=== PATIENT | male | born 1955 | race Caucasian/White ===

== ENCOUNTER → 2023-11-06 16:40 | Outpatient (REF) | payer MEDICARE, OTHER, SELFPAY | LOC: MRI 3T 16:40 | PROVIDERS: ATTENDING PHYSICIAN Urology; FAMILY PHYSICIAN Family Medicine | DX: N28.89 Other specified disorders of kidney and ureter (principal) | CPT/HCPCS: 74183; A9575 ==

== ENCOUNTER → 2023-12-09 14:19 | Outpatient (REF) | payer MEDICARE, OTHER, SELFPAY | LOC: RAD 14:19 | PROVIDERS: ATTENDING PHYSICIAN Family Medicine | DX: D86.0 Sarcoidosis of lung (principal) | CPT/HCPCS: 71046 ==

== ENCOUNTER → 2023-12-12 13:28 | Outpatient (REF) | payer MEDICARE, OTHER, SELFPAY ==
[2023-12-12 14:08] LABS: % Basophils 1.1 % (0-2); % Eosinophils 2.6 % (0-6); % Immature Granulocytes 0.4 % (0-0.5); % Lymphocytes 19.2 % (20.5-51.1); % Monocytes 7.1 % (1.7-9.3); % Neutrophils 69.6 % (42.2-75.2); Absolute Basophils 0.1 10^3/uL (0-0.2); Absolute Eosinophils 0.2 10^3/uL (0-0.7); Absolute Lymphocytes 1.8 10^3/uL (1.2-3.4); Absolute Monocytes 0.7 10^3/uL (0.1-0.6); Absolute Neutrophils 6.5 10^3/uL (1.4-6.5); Hematocrit 41.2 % (39.0-52.0); Hemoglobin 13.8 g/dL (13.0-18.0); Mean Corp Hgb Conc. 33.5 g/dL (33.0-37.0); Mean Corpuscular Hgb 28.8 pg (27.0-31.0); Mean Platelet Volume 9.8 fL (7.4-10.4); Nucleated Red Blood Cells % 0 % (-); Platelet Count 253 10^3/uL (130-400); Red Blood Cell Count 4.79 10^6/uL (4.70-6.10); Red Cell Dist. Width 13.3 % (11.5-14.5); White Blood Cell Count 9.3 10^3/uL (4.8-10.8)
[2023-12-12 14:26] LABS: Glycohemoglobin (HgbA1c) 5.9 % (4.0-5.6)
[2023-12-12 14:51] LABS: ALT (SGPT) 31 U/L (0-50); AST (SGOT) 30 U/L (17-59); Albumin 4.7 g/dl (3.5-5.0); Alkaline Phosphatase 106 U/L (38-126); Blood Urea Nitrogen 27 mg/dl (9-20); Calcium 9.8 mg/dl (8.4-10.2); Carbon Dioxide 27 mmol/L (22-30); Chloride 102 mmol/L (98-107); Glucose 99 mg/dl (70-99); HDL Cholesterol 47 mg/dl; LDL Cholesterol, Calculated 89 mg/dl; Potassium 4.5 mmol/L (3.5-5.1); Sodium 139 mmol/L (135-145); Total Bilirubin 0.7 mg/dl (0.2-1.3); Total Cholesterol 176 mg/dl (50-199); Total Protein 7.4 g/dl (6.3-8.2); Triglyceride 203 mg/dl (10-149); Very Low Density Lipoprotein 40 mg/dl (0-30); eGFR > 60.00
[2023-12-12 15:22] LABS: TSH 1.86 uIU/ml (0.47-4.68)
== END ==
LOC: REG 13:28
PROVIDERS: ATTENDING PHYSICIAN Family Medicine
DX: D86.0 Sarcoidosis of lung (principal); N52.9 Male erectile dysfunction, unspecified; N18.2 Chronic kidney disease, stage 2 (mild); M85.80 Other specified disorders of bone density and structure, unspecified site; K21.9 Gastro-esophageal reflux disease without esophagitis; I10 Essential (primary) hypertension; R73.01 Impaired fasting glucose
CPT/HCPCS: 36415; 80053; 80061; 82306; 83036; 84443; 85025

== ENCOUNTER 2024-03-26 06:21 | Day surgery (SDC) | payer MEDICARE, OTHER, SELFPAY ==
[2024-03-26] MEDS: CYSVIEW KIT 100 MG INTRAVES (11:40)
[2024-03-26] MEDS: NORMOSOL-R/PLASMALYTE-A 1000 IV (11:41)
[2024-03-26] MEDS: Pyridium 200 MG PO (15:17)
[2024-03-26] MEDS: ZOFRAN 4 MG IV (15:53)
[2024-03-26] MEDS: ROXICODONE 5 MG PO (15:54)
== END 2024-03-26 16:27 | disposition home or self-care (01) ==
LOC: SDS 06:21
PROVIDERS: ATTENDING PHYSICIAN Urology; FAMILY PHYSICIAN Family Medicine
DX: N30.80 Other cystitis without hematuria (principal); D49.4 Neoplasm of unspecified behavior of bladder
CPT/HCPCS: 52234; C9738; 88307

== ENCOUNTER 2024-04-24 16:41 | Inpatient (IN) | payer MEDICARE, OTHER, SELFPAY ==
[2024-04-24] VITALS (8 sets, daily range): BP systolic 103–155; BP diastolic 68–90; BMI 21.7; BMI 22.2
--- NOTE | 2024-04-24 11:58 | ED.GENMED ---
Addendum entered and electronically signed by Gregory Clark DO 04/24/24 15:41:
Update patient and spouse updated patient feels some belching but no vomiting, will keep n.p.o., hold on NG tube at this time but explained to the patient he may need one, his abdomen is distended but soft without guarding or rebound
Previously had some issues with constipation had been on Linzess
Original Note:
History of Present Illness
General
Chief Complaint: Abdominal Pain
Source: patient
Exam Limitations: none
Time Seen by Provider: 04/24/24 11:28
Nursing documentation reviewed up to this point in time: agreed with
History of Present Illness
History of Present Illness:
68-year-old male, presents with nausea vomiting decreased p.o. intake,
Started on Bactrim recently for urinary tract issue had a biopsy by urology has also had a partial nephrectomy has had a bowel resection due to accidental perforation during a bowel disimpaction at [facility]
Is not noted take his meds, vomited quite a bit of vomitus yesterday with some dark material mixed in has not had a normal bowel movement in some time
Past History
Past History
ED Past Medical History: Asthma, Cancer (Grade 1 renal cell carcinoma), GERD, HTN, Hypercholesterolemia, Valvular disease and Other (seasonal allergies)
ED Past Surgical History: Bowel resection (Rectal perforation with colon resection with colostomy with eventual Reversol.) and Urological
Social History
Tobacco: Non-smoker
Alcohol: None
Drug: None
Personal:
Living: with family
Employment: Employed
Family History
Family History: Other (Noncontributory)
Review of Systems
Review of Systems
All Other Systems: Not applicable
Constitutional: Reports fatigue; Denies fever
EENT: Reports no symptoms
Respiratory: Reports no symptoms
Cardiac: Denies chest pain
ABD/GI: Reports vomiting; Denies abdominal pain
: Reports no symptoms
Musculoskeletal: Reports no symptoms
Skin: Reports no symptoms
Neurological: Reports weakness
Phy Exam
Physical Exam
Physical Exam:
Physical Exam
General: 68-year-old male looks uncomfortable
Neck: Lips are dry
Heart: s1/s2 regular rate and rhythm, no murmur. equal radial pulses.
Lungs: no acute respiratory distress. clear bilaterally
Abdomen: Soft distended nontender
Neuro: alert and oriented. no focal neurological deficits
Skin: no rash
Psychiatric: well kept. interactive and cooperative
Extremities: no edema.
Course
Orders/Labs/Results
Orders:
Orders
04/24/24 11:29
Electrocardiogram (*1) Stat
Reason for Study: Abdominal Pain
Cardiac Monitoring- Treatment ONCE
EKG- Treatment ONCE
04/24/24 11:48
Complete Blood Count/With Diff Urgent
Comprehensive Metabolic Panel Urgent
Lipase Urgent
04/24/24 11:50
0.9% Sodium Chloride 1000 ml [Nss] 2,000 ml IV BOLUS
Ondansetron Injectable [Zofran] 4 mg IV NOW STA
Pantoprazole [Protonix IV] 40 mg IV NOW STA
04/24/24 11:51
CT Abd/pel (oral only)-DH Only Urgent
Comment:
Reason For Exam: vomiting
04/24/24 12:59
Iohexol [Omnipaque] See Protocol PO NOW STA
04/24/24 14:07
Urinalysis Reflex To Culture Urgent
Date Specimen was Collected: 04/24/24
Time Specimen was Collected: 11:54
Urine Microscopic Reflex Cult Urgent
Urine Culture Urgent
VALERI Source: U
Specimen Description:
Date Specimen was Collected: 04/24/24
Time Specimen was Collected: 11:54
Abnormal Lab Results
04/24/24 04/24/24
11:48 14:07
RBC 4.66 L 10^6/uL
(4.70-6.10)
Absolute Neuts (auto) 7.8 H 10^3/uL
(1.4-6.5)
Absolute Lymphs (auto) 1.0 L 10^3/uL
(1.2-3.4)
Absolute Monos (auto) 0.7 H 10^3/uL
(0.1-0.6)
Neutrophils % 82.1 H %
(42.2-75.2)
Lymphocytes % 10.2 L %
(20.5-51.1)
Chloride 93 L mmol/L
(98-107)
Carbon Dioxide 31 H mmol/L
(22-30)
BUN 34 H mg/dl
(9-20)
Creatinine 1.7 H mg/dL
(0.7-1.3)
Glucose 121 H mg/dl
(70-99)
Albumin 5.2 H g/dl
(3.5-5.0)
Urine Ketones 1+ A
(Negative)
Ur Occult Blood Reflex Trace A
(Negative)
Leukocyte Esterase Rfl Trace A
(Negative)
Urine RBC 7-10 A /HPF
(0-2)
Urine WBC (Reflex) 16-20 A /HPF
(0-5)
Urine Bacteria (Reflex) Few A
(Negative)
Urine Albumin (Reflex) 1+ A
(Neg - Trace)
04/24/24 11:48
04/24/24 11:48
Vital Signs
Initial and Last Documented VS:
Initial Vital Signs
Temp Pulse Resp BP Pulse Ox
98.7 F 64 18 155/90 98
04/24/24 10:45 04/24/24 10:45 04/24/24 10:45 04/24/24 10:45 04/24/24 10:45
Last Documented Vital Signs
Temp Pulse Resp BP Pulse Ox
98.7 F 57 16 137/88 97
04/24/24 10:45 04/24/24 12:30 04/24/24 12:30 04/24/24 12:08 04/24/24 12:30
MDM/Problems Addressed
Differential Diagnosis Includes:
Ileus obstruction UTI electrolyte abnormality upper GI bleed gastritis
MDM/Problems Addressed:
Vomiting
Chronic conditions affecting care: Previous abdomnial surgery and Cancer
Acute Exacerbation and/or Progression of Chronic Illness: Previous abdomnial surgery and Cancer
*Radiology
Radiology exam reviewed: radiology read reviewed
*Pulse Oximetry
Patient hypoxic: no
*EKG
Interpreted by ED Provider?: Yes
Interpretation: normal
Comparison EKG: no comparison EKG present
Heart Rate: 88
Rate: normal
Rhythm: sinus
Ischemia: no ischemia
*Import Coordinator Interpretation
Rate: normal
Interpretation: normal
Heart Rate: 77
Rhythm: sinus
*Critical Care Note
Total Time (30-74mins, 75-104mins- exclusive of procedures): Not Applicable
Update Note
Update Note:
Update, CT reviewed reviewed with radiology positive SBO in the left lower quadrant fits clinically has had bowel surgery previously will require admission message sent to hospitalist general surgery
ED Attending Note
-
Portions of this chart may have been created with voice recognition software.� Occasional wrong word or��sound alike� substitutions may have occurred due to the inherent limitations of voice recognition software.
Discharge Plan
Departure
Patient Disposition: Admit
Date of Disposition: 04/24/24
Time of Disposition: 15:32
Admit to: Med/Surg
Presentation/result/management discussed w/ accepting MD/DO: Hospitalist
Patient with high blood pressure during this ER visit?: No
Condition: Fair
Discharge Problem:
SBO (small bowel obstruction)
Prescriptions:
No Action
atorvastatin [Lipitor] 10 mg Tablet
10 mg PO DAILY
hydroxyzine HCl 10 mg Tablet
10 mg PO BID PRN (Reason: allergies)
magnesium 200 mg Tablet
400 mg PO BID
B12
1,000 mcg PO DAILY
chlorthalidone 25 mg Tablet
25 mg PO DAILY
famotidine 20 mg Tablet
20 mg PO QPM
tamsulosin [Flomax] 0.4 mg Capsule
0.4 mg PO QPM
albuterol sulfate 90 mcg/actuation Hfa Aerosol Inhaler
2 puff INHALATION Q6H PRN (Reason: asthma)
losartan [Cozaar] 100 mg Tablet
100 mg PO DAILY
tadalafil [Cialis] 5 mg Tablet
5 mg PO DAILY PRN (Reason: ED)
cholecalciferol (vitamin D3) [Vitamin D3] 50 mcg (2,000 unit) Capsule
50 mcg PO QPM
Budesonide Sinus Rinse
1 dose intranasal DAILY
vitamin Q60-dwctd acid
1 tab PO DAILY
Referrals:
Zulma Tabares DO [Family Provider] -
Interventions
Interventions:
*Risk Screen - Suicide Last Done: 04/24/24 10:45
*General Assessment Last Done: 04/24/24 10:45
*Neglect/Abuse Screening Last Done: 04/24/24 10:45
*ED COVID-19 Vaccine History Last Done: 04/24/24 11:58
CV-Upnfek-Xcngudrieo Assessment Last Done: 04/24/24 12:01
Discharge Date and Time
Print Language: ERITREAN
[2024-04-24 12:00] LABS: % Basophils 0.3 % (0-2); % Immature Granulocytes 0.3 % (0-0.5); % Lymphocytes 10.2 % (20.5-51.1); % Monocytes 7.1 % (1.7-9.3); % Neutrophils 82.1 % (42.2-75.2); Absolute Monocytes 0.7 10^3/uL (0.1-0.6); Absolute Neutrophils 7.8 10^3/uL (1.4-6.5); Hematocrit 40.4 % (39.0-52.0); Hemoglobin 13.9 g/dL (13.0-18.0); Mean Corp Hgb Conc. 34.4 g/dL (33.0-37.0); Mean Corpuscular Hgb 29.8 pg (27.0-31.0); Mean Corpuscular Volume 86.7 fL (80.0-94.0); Mean Platelet Volume 10.1 fL (7.4-10.4); Nucleated Red Blood Cells % 0 % (-); Platelet Count 251 10^3/uL (130-400); Red Blood Cell Count 4.66 10^6/uL (4.70-6.10); Red Cell Dist. Width 13.5 % (11.5-14.5); White Blood Cell Count 9.5 10^3/uL (4.8-10.8)
[2024-04-24] MEDS: NSS 2000 IV (12:03)
[2024-04-24 12:15] LABS: ALT (SGPT) 30 U/L (0-50); AST (SGOT) 26 U/L (17-59); Albumin 5.2 g/dl (3.5-5.0); Alkaline Phosphatase 87 U/L (38-126); Blood Urea Nitrogen 34 mg/dl (9-20); Calcium 10.1 mg/dl (8.4-10.2); Carbon Dioxide 31 mmol/L (22-30); Chloride 93 mmol/L (98-107); Estimated Creatinine Clearance 36 ml/min; Glucose 121 mg/dl (70-99); Potassium 4.1 mmol/L (3.5-5.1); Sodium 142 mmol/L (135-145); Total Protein 7.9 g/dl (6.3-8.2); eGFR 43.37
[2024-04-24 12:28] LABS: Lipase 82 U/L (23-300)
[2024-04-24] MEDS: ZOFRAN 4 MG IV (12:51)
[2024-04-24] MEDS: PROTONIX IV 40 MG IV (12:51)
[2024-04-24] MEDS: OMNIPAQUE 50 ML PO (13:04)
[2024-04-24 14:18] LABS: Urine Albumin 1+ (Neg - Trace); Urine Bilirubin Negative (Negative); Urine Character Clear (Clear); Urine Color Yellow; Urine Glucose Negative (Negative); Urine Ketone 1+ (Negative); Urine Leukocyte Trace (Negative); Urine Nitrite Negative (Negative); Urine Occult Blood Trace (Negative); Urine Urobilinogen Negative (Neg - 1+)
[2024-04-24 14:32] LABS: Urine Mucus Moderate
[2024-04-24 14:33] LABS: Urine Bacteria Few (Negative); Urine White Cell 16-20 /HPF (0-5)
--- NOTE | 2024-04-24 16:09 | HPS.HSE ---
Family Physician
-
Family Physician: Zulma Tabares
Chief Complaint
-
abd distention, n/v
History of Present Illness
68 y/o M, hx of bowel perforation s/p ostomy creation/reversal 2008, HTN, HLD, Asthma, GERD, BPH, hx of renal mass s/p nephrectomy presenting to ER for abd distention. Patient reports worsening abd distention over a few days, associated with
nausea/vomiting and reflux type symptoms. He reports no sky abdominal pain. no fever/chills. No other complaints.
in ER, found to have SBO on CT.
Also reports being on Bactrim for recent cystoscopy procedure for bladder wall lesions and concern for possible bladder malignancy but path showed cystitis.
Medical History
Past Medical History
Past Medical History: Reports Other (hx of bowel perforation s/p ostomy creation/reversal 2008, HTN, HLD, Asthma, GERD, BPH, hx of renal mass s/p nephrectomy)
Past Surgical History: Reports Other (Bowel resection (Rectal perforation with colon resection with colostomy with eventual Reversol.) and Urological)
Social History
Tobacco: Non-smoker
Alcohol: None
Drug: None
Personal:
Living: With Family
Employment: Employed
Family History
Family History: Not pertinent
Allergies / Home Medications
Allergies reflects when Allergies were last updated in [employer].
Home Medications with original date entered in [employer]
Allergy/Medication List:
Allergies
Allergy/AdvReac Type Severity Reaction Status Date / Time
acetaminophen [From Percocet] Allergy Intermediate Pharmacy Verified 04/24/24 10:45
to Review
Latex, Natural Rubber Allergy Intermediate Itching, Verified 04/24/24 10:45
rash
oxycodone HCl [From Percocet] Allergy Intermediate Pharmacy Verified 04/24/24 10:45
to Review
Iodinated Contrast Media Allergy Hives Verified 04/24/24 10:45
pollen extracts Allergy post nasal Verified 04/24/24 10:45
drip
Home Medications
atorvastatin 10 mg tablet (Lipitor) 10 mg PO DAILY 03/27/23
hydroxyzine HCl 10 mg tablet 10 mg PO BIDPRN PRN itching 03/27/23
magnesium 200 mg tablet 600 mg PO BID 03/27/23
Budesonide Sinus Rinse 1 dose intranasal DAILY 03/20/24
albuterol sulfate 90 mcg/actuation aerosol inhaler 2 puff inhalation R Q6HPRN PRN sob/wheezing 03/20/24
chlorthalidone 25 mg tablet 25 mg PO DAILY 03/20/24
cholecalciferol (vitamin D3) 50 mcg (2,000 unit) capsule (Vitamin D3) 50 mcg PO QPM 03/20/24
cyanocobalamin (vitamin B-12) 1,000 mcg tablet 1,000 mcg PO DAILY 03/20/24
losartan 100 mg tablet (Cozaar) 100 mg PO DAILY 03/20/24
tadalafil 5 mg tablet (Cialis) 5 mg PO DAILYPRN PRN ED 03/20/24
tamsulosin 0.4 mg capsule (Flomax) 0.4 mg PO QPM 03/20/24
amlodipine 5 mg tablet 5 mg PO DAILY 04/24/24
montelukast 10 mg tablet 10 mg PO HS 04/24/24
omeprazole 20 mg capsule,delayed release 20 mg PO DAILY 04/24/24
oxybutynin chloride 10 mg tablet,extended release 24 hr 10 mg PO DAILYPRN PRN frequent urination 04/24/24
phenazopyridine 200 mg tablet 200 mg PO TIDPRN PRN urinary burning 04/24/24
solifenacin 5 mg tablet 5 mg PO QPM 04/24/24
sulfamethoxazole 800 mg-trimethoprim 160 mg tablet 1 tab PO BID 04/24/24
Review of Systems
-
A 12 point ROS was completed and negative except as noted: Yes
Physical Exam
Vital Signs
Vital Signs
Temp Pulse Resp BP Pulse Ox
98.7 F 57 16 137/88 97
04/24/24 10:45 04/24/24 12:30 04/24/24 12:30 04/24/24 12:08 04/24/24 12:30
Physical Exam
General: No Apparent Distress
HEENT: NormoCephalic and Anicteric
Respiratory: No Wheezes or Rales
Cardiac: S1/S2 and Regular Rhythm
GI: Soft and Distended
Neuro: AO x 3
Hematologic/Lymphatic: No Lymphadenopathy
Psych: Calm
Laboratory Results
-
04/24/24 11:48
04/24/24 11:48
Laboratory Results
Total Bilirubin 1.0 mg/dl (0.2-1.3) 04/24/24 11:48
AST 26 U/L (17-59) 04/24/24 11:48
ALT 30 U/L (0-50) 04/24/24 11:48
Alkaline Phosphatase 87 U/L (38-126) 04/24/24 11:48
Lipase 82 U/L (23-300) 04/24/24 11:48
Data Reviewed
-
CT Scan: Report Reviewed by me
Lab Data: Labs Reviewed by me
Impression/Plan
-
Assessment:
SBO
Hx of hx of bowel perforation s/p ostomy creation/reversal 2008
- CT: Findings consistent with adhesive small bowel obstruction, transition point in the left lower quadrant of the abdomen. There is fecalization of the small bowel contents just proximal to the transition point, and decompression of the distal
small bowel.
- NPO/IVF
- pain control
- anti emetics
- may need NGT if vomiting
- GS consulted
- AXR in AM to assess contrast progression
IWONA
- start IVF
- hold nephrotoxins
Essential HTN
- hold Amlodipine/chlorthalidone/losartan
- prn Hydralazine with parameters
HLD - hold Lipitor
Asthma - prn nebs
GERD
- IV PPI
recent cystoscopy procedure for bladder wall lesions
BPH
hx of renal mass s/p nephrectomy
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
- on Bactrim per OP urology but with IWONA - start Rocephin
- follow urine culture
- hold Flomax
DVT ppx: SCDs
Code: Full
[2024-04-24] MEDS: LR 1000 IV (19:41)
[2024-04-24] MEDS: STERILE WATER FOR INJECTION 10 ML IV (19:42)
[2024-04-24] MEDS: FLUSH (NSS) IV ×2 (19:42)
[2024-04-24] MEDS: ROCEPHIN 1000 MG IV (19:42)
[2024-04-24] MEDS: NSS (PRESERVATIVE FREE) 8 ML IV (20:19)
[2024-04-24] MEDS: PEPCID 20 MG IV (20:19)
[2024-04-25] MEDS: LR 1000 IV (05:22)
[2024-04-25 07:00] VITALS: BP 131/70
[2024-04-25 07:20] LABS: Hematocrit 33.2 % (39.0-52.0); Hemoglobin 11.2 g/dL (13.0-18.0); Mean Corp Hgb Conc. 33.7 g/dL (33.0-37.0); Mean Corpuscular Hgb 30.8 pg (27.0-31.0); Mean Corpuscular Volume 91.2 fL (80.0-94.0); Mean Platelet Volume 10.8 fL (7.4-10.4); Platelet Count 167 10^3/uL (130-400); Red Blood Cell Count 3.64 10^6/uL (4.70-6.10); Red Cell Dist. Width 13.5 % (11.5-14.5); White Blood Cell Count 7.3 10^3/uL (4.8-10.8)
[2024-04-25 08:01] LABS: Blood Urea Nitrogen 29 mg/dl (9-20); Calcium 8.4 mg/dl (8.4-10.2); Carbon Dioxide 24 mmol/L (22-30); Chloride 105 mmol/L (98-107); Estimated Creatinine Clearance 48 ml/min; Glucose 78 mg/dl (70-99); Potassium 4.5 mmol/L (3.5-5.1); Sodium 137 mmol/L (135-145); eGFR 59.84
[2024-04-25] MEDS: NSS (PRESERVATIVE FREE) 10 ML IV (08:04)
[2024-04-25] MEDS: PROTONIX IV 40 MG IV (08:04)
--- NOTE | 2024-04-25 09:50 | W.PN.HOSP.TC ---
Today's Communication/Plan
-
await GS recs
continue IV Rocephin and follow urine culture
Assessment / Plan
Assessment / Plan
Assessment:
SBO
Hx of hx of bowel perforation s/p ostomy creation/reversal 2008
- CT: Findings consistent with adhesive small bowel obstruction, transition point in the left lower quadrant of the abdomen. There is fecalization of the small bowel contents just proximal to the transition point, and decompression of the distal
small bowel.
- AXR: Partial but incomplete small bowel obstruction. Contrast from yesterday's CT abdomen pelvis has passed into the colon
- NPO/IVF
- pain control
- anti emetics
- may need NGT if vomiting
- GS consulted
IWONA
- improving
- continue IVF
- hold nephrotoxins
Essential HTN
- hold Amlodipine/chlorthalidone/losartan
- prn Hydralazine with parameters
HLD - hold Lipitor
Asthma - prn nebs
GERD
- IV PPI
recent cystoscopy procedure for bladder wall lesions
BPH
hx of renal mass s/p nephrectomy
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
- on Bactrim per OP urology but with IWONA its held now
- continue Rocephin, day 2
- follow urine culture
- hold Flomax
DVT ppx: SCDs
Code: Full
Anticipated Discharge: > 48 hours
Subjective/Interval History
-
Date of Service: April 25, 2024
passing some flatus, reports some lower abdominal pain
Objective Data
-
Labs:
Laboratory Results
04/25/24
04:50
WBC 7.3
Hgb 11.2 L
Hct 33.2 L
Plt Count 167 D
Sodium 137
Potassium 4.5
Chloride 105
Carbon Dioxide 24
BUN 29 H
Creatinine 1.3
Glucose 78
Calcium 8.4 D
Vital Signs:
Vital Signs
Temp Pulse Resp BP Pulse Ox
98.2 F 52 14 131/70 97
04/25/24 07:00 04/25/24 07:00 04/25/24 07:00 04/25/24 07:00 04/25/24 07:00
Physical Exam
-
General: No Apparent Distress
HEENT: Normocephalic and Atraumatic
Respiratory: Negative Wheezes
Cardiac: Regular Rhythm and S1/S2
GI: Soft
Genito-urinary: No Costovertebral Tender
Neuro: AO x 3
Hematologic / Lymphatic: No Lymphadenopathy
Psych: Calm
Data Reviewed
-
Total Time Spent with Patient (in minutes): 41
Labs: Labs Reviewed by me
--- NOTE | 2024-04-25 13:59 | CON.GS ---
Consultation
-
Date/Time Consultation Requested: 04/24/2024, 18:11
Date/Time Consultation Performed: 04/25/2024, 13:15
Requesting Provider: Manuel Ramirez MD
Performing Provider: Rusty Romero MD
Reason for Consultation: SBO
Medical History
-
Chief Complaint: abdominal distention
History of Present Illness:
68-year-old male, with a history of bowel perforation status post colostomy creation status post reversal in 2008 and history of a renal cancer status post nephrectomy, presents due to abdominal distention. The patient states that it happened 3
days ago and noticed his abdomen was quite large. He denies pain but states it was more of a discomfort since it was distended. He vomited brown liquid twice at home and then was brought to the emergency department. In the ER his WBC was normal.
He was afebrile and his vitals remained normal. CT of the abdomen and pelvis shows findings consistent with an adhesive small bowel obstruction, transition point in the left lower quadrant of the abdomen. There is fecalization of small bowel
contents just proximal to the transition point and decompression of the distal small bowel. X-rays this morning showed a partial but incomplete small bowel obstruction with contrast from yesterday CT abdomen pelvis but it has passed into the colon.
He has remained n.p.o. and currently states he feels improved. He denies any current pain. We have been consulted for further surgical recommendations.
Past Medical History
Past Medical History: Other (hx of bowel perforation s/p ostomy creation/reversal 2008, HTN, HLD, Asthma, GERD, BPH, hx of renal mass s/p nephrectomy)
Past Surgical History: Other (as above)
Social History
Tobacco: Non-Smoker
Alcohol: None
Drug: None
Family History
Family History: Reviewed & Not Pertinent
Allergies / Home Medications
Allergy/AdvReac Type Severity Reaction Status Date / Time
acetaminophen [From Percocet] Allergy patient Verified 04/24/24 20:03
denies
acetaminophen
allergy
grass pollen Allergy post nasal Verified 04/24/24 20:03
drip
Iodinated Contrast Media Allergy Hives Verified 04/24/24 10:45
Latex, Natural Rubber Allergy Itching, Verified 04/24/24 20:03
rash
oxycodone HCl [From Percocet] Allergy patient Verified 04/24/24 20:03
reports
vomiting
to
narcotics
in pill
form
pollen extracts Allergy post nasal Verified 04/24/24 10:45
drip
tree and shrub pollen Allergy post nasal Verified 04/24/24 20:03
drip
�Medication �Instructions �Recorded �Confirmed �Type
atorvastatin 10 mg tablet (Lipitor) 10 mg PO DAILY High Cholesterol 03/27/23 04/24/24 History
hydroxyzine HCl 10 mg tablet 10 mg PO BIDPRN PRN itching 03/27/23 04/24/24 History
magnesium 200 mg tablet 600 mg PO BID Supplement 03/27/23 04/24/24 History
Budesonide Sinus Rinse 1 dose intranasal DAILY 03/20/24 04/24/24 History
Lung/Breathing Issues
albuterol sulfate 90 mcg/actuation 2 puff inhalation R Q6HPRN PRN 03/20/24 04/24/24 History
aerosol inhaler sob/wheezing
chlorthalidone 25 mg tablet 25 mg PO DAILY Blood Pressure 03/20/24 04/24/24 History
cholecalciferol (vitamin D3) 50 50 mcg PO QPM Supplement 03/20/24 04/24/24 History
mcg (2,000 unit) capsule (Vitamin
D3)
cyanocobalamin (vitamin B-12) 1,000 mcg PO DAILY Supplement 03/20/24 04/24/24 History
1,000 mcg tablet
losartan 100 mg tablet (Cozaar) 100 mg PO DAILY Blood Pressure 03/20/24 04/24/24 History
tadalafil 5 mg tablet (Cialis) 5 mg PO DAILYPRN PRN ED 03/20/24 04/24/24 History
tamsulosin 0.4 mg capsule (Flomax) 0.4 mg PO QPM Urinary Issue 03/20/24 04/24/24 History
amlodipine 5 mg tablet 5 mg PO DAILY Blood Pressure 04/24/24 04/24/24 History
montelukast 10 mg tablet 10 mg PO HS Allergies/Breathing 04/24/24 04/24/24 History
omeprazole 20 mg capsule,delayed 20 mg PO DAILY Gastrointestinal 04/24/24 04/24/24 History
release Issue
oxybutynin chloride 10 mg 10 mg PO DAILYPRN PRN frequent 04/24/24 04/24/24 History
tablet,extended release 24 hr urination
phenazopyridine 200 mg tablet 200 mg PO TIDPRN PRN urinary 04/24/24 04/24/24 History
burning
solifenacin 5 mg tablet 5 mg PO QPM Urinary Issue 04/24/24 04/24/24 History
sulfamethoxazole 800 1 tab PO BID Infection 04/24/24 04/24/24 History
mg-trimethoprim 160 mg tablet
Review of Systems
-
History Source: Patient
All other systems: Negative unless noted
Abdomen/GI: Abdominal Pain, Nausea, Vomiting and Other (bloating)
A 10 point review of systems was completed, and was negative except as per HPI.
Physical Exam
Vital Signs
Temp Pulse Resp BP Pulse Ox
98.2 F 52 14 131/70 97
04/25/24 07:00 04/25/24 07:00 04/25/24 07:00 04/25/24 07:00 04/25/24 07:00
04/24/24 04/25/24 04/26/24
06:59 06:59 06:59
Actual Weight 62.369 kg
Body Mass Index (BMI) 22.2
Lab Results
04/25/24 04:50
04/25/24 04:50
WBC 7.3 10^3/uL (4.8-10.8) 04/25/24 04:50
Hgb 11.2 g/dL (13.0-18.0) L 04/25/24 04:50
Hct 33.2 % (39.0-52.0) L 04/25/24 04:50
Plt Count 167 10^3/uL (130-400) D 04/25/24 04:50
Abs Immat Gran (auto) 0.0 10^3/uL (0-0.05) 04/24/24 11:48
Neutrophils % 82.1 % (42.2-75.2) H 04/24/24 11:48
Physical Exam
General: Well Developed, Well Nourished and No Apparent Distress
GI: Soft, Non Tender and Distended (mild, improved per patient)
Neuro: AO x 3
Data Reviewed
-
Radiology: Image Personally Visualized and interpreted, Report Reviewed by me and Discussed with Patient
CT Scan: Image Personally Visualized and interpreted, Report Reviewed by me and Discussed with Patient
Labs: Labs Reviewed by me, Discussed with Physician, Discussed with Patient and Discussed with Family
Old Records: Reviewed
Assessment / Plan
-
Assessment: 68-year-old male with a history of colectomy with colostomy status post reversal in 2008 and more recently a nephrectomy presents to the ER with abdominal distention and found to have a small bowel obstruction
Plan:
-No indication for surgery at this time
-Advance to a clear liquid diet
-IV fluids
-If he begins to vomit, please make n.p.o. and contact our service
-Discussed with patient and at bedside. Will follow.
[2024-04-25 14:24] VITALS: BMI 22.2
[2024-04-25 15:00] VITALS: BP 154/76
[2024-04-25] MEDS: FLUSH (NSS) 1 FLUSH IV ×2 (17:09→17:12)
[2024-04-25] MEDS: ROCEPHIN 1000 MG IV (17:11)
[2024-04-25] MEDS: STERILE WATER FOR INJECTION 10 ML IV (17:11)
[2024-04-25 23:00] VITALS: BP 141/76
[2024-04-26 07:55] VITALS: BP 126/82
[2024-04-26 08:18] LABS: Hematocrit 33.4 % (39.0-52.0); Hemoglobin 11.5 g/dL (13.0-18.0); Mean Corp Hgb Conc. 34.4 g/dL (33.0-37.0); Mean Corpuscular Volume 87.2 fL (80.0-94.0); Mean Platelet Volume 10.5 fL (7.4-10.4); Platelet Count 190 10^3/uL (130-400); Red Blood Cell Count 3.83 10^6/uL (4.70-6.10); Red Cell Dist. Width 13.2 % (11.5-14.5); White Blood Cell Count 6.7 10^3/uL (4.8-10.8)
[2024-04-26] MEDS: PROTONIX IV 40 MG IV (09:09)
[2024-04-26] MEDS: NSS (PRESERVATIVE FREE) 10 ML IV (09:09)
--- NOTE | 2024-04-26 09:40 | W.PN.HOSP.TC ---
Today's Communication/Plan
-
dc later this evening if tolerates diet, resume home meds
Assessment / Plan
Assessment / Plan
Assessment:
SBO
Hx of hx of bowel perforation s/p ostomy creation/reversal 2008
- CT: Findings consistent with adhesive small bowel obstruction, transition point in the left lower quadrant of the abdomen. There is fecalization of the small bowel contents just proximal to the transition point, and decompression of the distal
small bowel.
- AXR: Partial but incomplete small bowel obstruction. Contrast from yesterday's CT abdomen pelvis has passed into the colon
- diet: advance to LRD if ok with CRS and DC later today if tolerates
- appreciate surgery team recs overall
IWONA
- improving
- continue IVF
Essential HTN
- resume Amlodipine/chlorthalidone/losartan
- prn Hydralazine with parameters
HLD - resume Lipitor
Asthma - prn nebs
GERD
- continue PPI
recent cystoscopy procedure for bladder wall lesions
BPH
hx of renal mass s/p nephrectomy
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
- on Bactrim per OP urology for cystitis glandularis; not for infection. Pt cannot tolerate Bactrim
- d/w on-call Urology, Dr. Hernandez, at this time stop Bactrim and patient instructed to f/u with OP Urology office
- resume Flomax
DVT ppx: SCDs
Code: Full
More than 30 minutes spent in discharge including
Final examination of the patient
Summarizing hospital stay
Instructions for continuing care to all relevant caregivers
Preparation of discharge records, prescriptions, and referral forms
Total time spent (in minutes):41
Anticipated Discharge: Today
Subjective/Interval History
-
Date of Service: April 26, 2024
tolerating clears, no complaints
Objective Data
-
Labs:
Laboratory Results
04/26/24
05:52
WBC 6.7
Hgb 11.5 L
Hct 33.4 L
Plt Count 190
Sodium Pending
Potassium Pending
Chloride Pending
Carbon Dioxide Pending
BUN Pending
Creatinine Pending
Glucose Pending
Calcium Pending
Vital Signs:
Vital Signs
Temp Pulse Resp BP Pulse Ox
98.6 F 54 16 126/82 98
04/26/24 07:55 04/26/24 07:55 04/26/24 07:55 04/26/24 07:55 04/26/24 07:55
I&O
04/25/24 04/26/24 04/27/24
06:59 06:59 06:59
Intake Total 600 / 600
Balance 600 / 600
Physical Exam
-
General: No Apparent Distress
HEENT: Normocephalic and Atraumatic
Respiratory: Negative Wheezes
Cardiac: Regular Rhythm and S1/S2
GI: Soft
Genito-urinary: No Costovertebral Tender
Neuro: AO x 3
Hematologic / Lymphatic: No Lymphadenopathy
Psych: Calm
Data Reviewed
-
Total Time Spent with Patient (in minutes): 41
Labs: Labs Reviewed by me
[2024-04-26 09:49] LABS: Blood Urea Nitrogen 26 mg/dl (9-20); Calcium 8.9 mg/dl (8.4-10.2); Carbon Dioxide 25 mmol/L (22-30); Chloride 103 mmol/L (98-107); Estimated Creatinine Clearance 57 ml/min; Glucose 72 mg/dl (70-99); Potassium 4.2 mmol/L (3.5-5.1); Sodium 139 mmol/L (135-145); eGFR > 60.00
--- NOTE | 2024-04-26 10:02 | W.DS.TRANS ---
DC Summary - [employer] Comp[employer]ic
-
Discharge Instructions:
Discharge Diagnosis/Procedures small bowel obstruction
Diet Low Residue
Activity As tolerated
Bathing Restrictions None
Instructions:
Stand-Alone Forms:
Changes to Home Medications: Yes
Discharge Medications:
DC Medications w/original date entered in [facility]
atorvastatin 10 mg tablet (Lipitor) 10 mg PO DAILY High Cholesterol 03/27/23
hydroxyzine HCl 10 mg tablet 10 mg PO BIDPRN PRN itching 03/27/23
magnesium 200 mg tablet 600 mg PO BID Supplement 03/27/23
Budesonide Sinus Rinse 1 dose intranasal DAILY Lung/Breathing Issues 03/20/24
albuterol sulfate 90 mcg/actuation aerosol inhaler 2 puff inhalation R Q6HPRN PRN sob/wheezing 03/20/24
chlorthalidone 25 mg tablet 25 mg PO DAILY Blood Pressure 03/20/24
cholecalciferol (vitamin D3) 50 mcg (2,000 unit) capsule (Vitamin D3) 50 mcg PO QPM Supplement 03/20/24
cyanocobalamin (vitamin B-12) 1,000 mcg tablet 1,000 mcg PO DAILY Supplement 03/20/24
losartan 100 mg tablet (Cozaar) 100 mg PO DAILY Blood Pressure 03/20/24
tadalafil 5 mg tablet (Cialis) 5 mg PO DAILYPRN PRN ED 03/20/24
tamsulosin 0.4 mg capsule (Flomax) 0.4 mg PO QPM Urinary Issue 03/20/24
amlodipine 5 mg tablet 5 mg PO DAILY Blood Pressure 04/24/24
montelukast 10 mg tablet 10 mg PO HS Allergies/Breathing 04/24/24
omeprazole 20 mg capsule,delayed release 20 mg PO DAILY Gastrointestinal Issue 04/24/24
oxybutynin chloride 10 mg tablet,extended release 24 hr 10 mg PO DAILYPRN PRN frequent urination 04/24/24
phenazopyridine 200 mg tablet 200 mg PO TIDPRN PRN urinary burning 04/24/24
solifenacin 5 mg tablet 5 mg PO QPM Urinary Issue 04/24/24
Home Medication Changes
Bactrim stopped
Pending Results: No
Total time spent discharging patient (in min): 42
[2024-04-26] MEDS: Hygroton 25 MG PO (11:25)
[2024-04-26] MEDS: NORVASC 5 MG PO (11:26)
--- NOTE | 2024-04-26 12:20 | W.PN.CRS1 ---
Today's Communication / Plan
-
okay for d/c
Assessment/Plan
-
Assessment: 68-year-old male with a history of colectomy with colostomy status post reversal in 2008 and more recently a nephrectomy presents to the ER with abdominal distention and found to have a small bowel obstruction
Plan:
-No indication for surgery at this time
-Advance to a low residue diet
-Okay for discharge later today if tolerating low residue diet. All questions answered.
Subjective Data
Subjective Data
Date of Service: April 26, 2024
Patient state he feels 'fine'. He has no complaints. He denies pain. He is having bowel movements. He denies abdominal pain.
Objective Data
-
Vital Signs
Temp Pulse Resp BP Pulse Ox
98.6 F 53 16 126/71 98
04/26/24 07:55 04/26/24 11:25 04/26/24 07:55 04/26/24 11:25 04/26/24 07:55
Intake & Output
04/25/24 04/26/24 04/27/24
06:59 06:59 06:59
Intake Total 600 / 600
Balance 600 / 600
Intake:
Oral fluids 600 / 600
Other:
Number of approximated MODERATE 4 4
amounts of urine
Number of approximated LARGE 1
amounts of urine
Lab Results
04/26/24 05:52
04/26/24 05:52
Physical Exam
-
General: No Acute Distress and AOx3
Abdomen: Soft, Non Distended and Non Tender
Skin: Warm and Dry
--- NOTE | 2024-04-26 13:01 | CM ---
[facility]ACI met with Perico to complete IA. He lives with his in a 2 story home with 4 entry steps. Perico is (I) amb and adls. He and his are hoping to travel [place] in the near future, as they are now both retired.
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 He is
looking forward to returning there in a few weeks when the program starts for Fall.
Plan: Discharge to home with no needs. will drive him home.
[2024-04-26 15:12] VITALS: BP 135/83
[2024-04-27 21:47] LABS: Hepatitis C Antibody Negative (Negative)
== END 2024-04-26 15:32 | disposition home or self-care (01) | DRG 389 ==
LOC: 4 EAST ACU 16:41
PROVIDERS: ADMITTING PHYSICIAN Internal Medicine; EMERGENCY PHYSICIAN Emergency Medicine; FAMILY PHYSICIAN Family Medicine; OTHER PHYSICIAN Surgery
DX: K56.51 Intestinal adhesions [bands], with partial obstruction (principal); N17.9 Acute kidney failure, unspecified; E78.00 Pure hypercholesterolemia, unspecified; I10 Essential (primary) hypertension; J45.909 Unspecified asthma, uncomplicated; K21.9 Gastro-esophageal reflux disease without esophagitis; N40.0 Benign prostatic hyperplasia without lower urinary tract symptoms; N30.80 Other cystitis without hematuria; Z88.5 Allergy status to narcotic agent; Z79.899 Other long term (current) drug therapy; Z90.5 Acquired absence of kidney; Z90.49 Acquired absence of other specified parts of digestive tract; Z85.528 Personal history of other malignant neoplasm of kidney
CPT/HCPCS: 74018; 74176; 80048; 80053; 81003; 81015; 83690; 85025; 85027; 86803; 87086; 93005; 96361; 96374; 96375; 96376; 99285

== ENCOUNTER 2024-06-05 06:21 | Day surgery (SDC) | payer MEDICARE, OTHER, SELFPAY ==
[2024-06-05] VITALS (13 sets, daily range): BP systolic 129–151; BP diastolic 82–99; BMI 22.5
== END 2024-06-05 16:30 | disposition home or self-care (01) ==
LOC: SDS 06:21
PROVIDERS: ATTENDING PHYSICIAN Urology
DX: N30.80 Other cystitis without hematuria (principal); N40.0 Benign prostatic hyperplasia without lower urinary tract symptoms
CPT/HCPCS: 52354; 52234; 88305

== ENCOUNTER → 2024-08-26 14:00 | Outpatient (REF) | payer MEDICARE, OTHER, SELFPAY | LOC: CLAB 14:00 | PROVIDERS: ATTENDING PHYSICIAN Physician Assistant | DX: A63.0 Anogenital (venereal) warts (principal) | CPT/HCPCS: 87624; 88112 ==

== ENCOUNTER → 2025-02-03 11:37 | Outpatient (REF) | payer MEDICARE, OTHER, SELFPAY ==
[2025-02-03 13:26] LABS: Hematocrit 39.2 % (39.0-52.0); Hemoglobin 13.0 g/dL (13.0-18.0); Mean Corp Hgb Conc. 33.2 g/dL (33.0-37.0); Mean Corpuscular Volume 84.5 fL (80.0-94.0); Nucleated Red Blood Cells % 0 % (-); Platelet Count 215 10^3/uL (130-400); Red Cell Dist. Width 14.0 % (11.5-14.5)
[2025-02-03 13:50] LABS: ALT (SGPT) 19 U/L (0-50); AST (SGOT) 21 U/L (17-59); Albumin 4.8 g/dl (3.5-5.0); Alkaline Phosphatase 76 U/L (38-126); Blood Urea Nitrogen 19 mg/dl (9-20); Calcium 9.7 mg/dl (8.4-10.2); Carbon Dioxide 24 mmol/L (22-30); Chloride 106 mmol/L (98-107); Glucose 97 mg/dl (70-99); HDL Cholesterol 43 mg/dl; LDL Cholesterol, Calculated 69 mg/dl; Potassium 4.6 mmol/L (3.5-5.1); Sodium 142 mmol/L (135-145); Total Protein 7.3 g/dl (6.3-8.2); Very Low Density Lipoprotein 43 mg/dl (0-30); eGFR > 60.00
[2025-02-03 13:56] LABS: Glycohemoglobin (HgbA1c) 5.9 % (4.0-5.6)
== END ==
LOC: REG 11:37
PROVIDERS: ATTENDING PHYSICIAN Family Medicine
DX: R73.01 Impaired fasting glucose (principal); E78.2 Mixed hyperlipidemia; K21.9 Gastro-esophageal reflux disease without esophagitis
CPT/HCPCS: 36415; 80053; 80061; 83036; 85025

== ENCOUNTER → 2025-02-11 10:42 | Outpatient (REF) | payer MEDICARE, OTHER, SELFPAY | LOC: HWRAD 10:42 | PROVIDERS: ATTENDING PHYSICIAN Family Medicine | DX: Z77.22 Contact with and (suspected) exposure to environmental tobacco smoke (acute) (chronic) (principal); Z77.098 Contact with and (suspected) exposure to other hazardous, chiefly nonmedicinal, chemicals | CPT/HCPCS: 71250 ==

== ENCOUNTER → 2025-03-16 09:36 | Outpatient (REF) | payer MEDICARE, OTHER, SELFPAY | LOC: RAD 09:36 | PROVIDERS: ATTENDING PHYSICIAN Family Medicine | DX: Z87.81 Personal history of (healed) traumatic fracture (principal); M85.88 Other specified disorders of bone density and structure, other site | CPT/HCPCS: 77080 ==

== ENCOUNTER 2025-04-07 06:30 | Day surgery (SDC) | payer MEDICARE, OTHER, SELFPAY | END 2025-04-07 11:27 | disposition home or self-care (01) | LOC: GI 06:30 | PROVIDERS: ATTENDING PHYSICIAN Internal Medicine; FAMILY PHYSICIAN Family Medicine | DX: Z12.11 Encounter for screening for malignant neoplasm of colon (principal); D12.3 Benign neoplasm of transverse colon; K56.2 Volvulus; K64.9 Unspecified hemorrhoids; Z86.0101 Personal history of adenomatous and serrated colon polyps; Z98.0 Intestinal bypass and anastomosis status | CPT/HCPCS: 45380; 88305 ==